=== PATIENT | female | born 1995 | race Caucasian/White ===

== ENCOUNTER 2016-11-22 07:20 | Day surgery (SDC) | payer OTHER ==
[2016-11-22] VITALS (13 sets, daily range): BP systolic 97–136; BP diastolic 50–87; PULSE 76–98; RESP 16–20; Ht 177.8 cm; Wt 114.0 kg
[~2016-11-22] VITALS: Ht 177.8 cm; Wt 114.0 kg
[~2016-11-22 07:20] MED LIST: CEFAZOLIN 2 GM/50 ML (PMX) 50 ML IVPB SCH
--- NOTE | 2016-11-22 08:59 | HPN ---
Date/Time of Note Date/Time of Note DATE: 11/22/16 TIME: 08:59 Interval H&P Admission Note Pt. seen H&P reviewed: No system changes CHRISTIANO ENG DPM Nov 22, 2016 08:59
[2016-11-22] MEDS ORDERED: BUPIVACAINE 0.5% (SDV) 30 ML INJ ONE (09:03)
[2016-11-22] MEDS ORDERED: POLYMYXIN/BACITRACIN 1L IRRIG ONE (09:03)
[2016-11-22] MEDS ORDERED: MIDAZOLAM 1 MG/ML 2 ML INJ ONE ×2 (09:12→09:21)
[2016-11-22] MEDS ORDERED: FENTAnyl 50 MCG/ML VIAL ONE (09:13)
[2016-11-22] MEDS ORDERED: ONDANSETRON 4 MG INJ ONE (09:25)
[2016-11-22] MEDS ORDERED: PROPOFOL 20 ML ONE ×2 (09:25)
[2016-11-22] MEDS ORDERED: DEXAMETHASONE 4 MG/ML 1 ML INJ ONE (09:25)
[2016-11-22] MEDS ORDERED: LIDOCAINE 2% (SDV) 5 ML INJ ONE (09:25)
[2016-11-22] MEDS ORDERED: METOCLOPRAMIDE 10 MG INJ ONE (09:25)
[2016-11-22] MEDS ORDERED: ACETAMINOPHEN 1000MG/100ML IV 0 ML ONE (09:28)
[2016-11-22] MEDS ORDERED: CEFAZOLIN 1 GM INJ ONE (09:30)
[2016-11-22] MEDS ORDERED: PHENYLephrine (100 MCG/ML) 5ML SYG ONE (09:50)
[2016-11-22] MEDS ORDERED: LIDOCAINE 2% (MDV) 20 ML INJ INJ ONE (09:51)
[2016-11-22] MEDS ORDERED: DIPHENHYDRAMINE 50 MG INJ IV PRN (10:00)
[2016-11-22] MEDS ORDERED: HYDROmorphONE (0.2 MG/ML) 10ML SYG IV PRN ×2 (10:00)
[2016-11-22] MEDS ORDERED: MEPERIDINE 25 MG INJ IV PRN (10:00)
[2016-11-22] MEDS ORDERED: FENTAnyl 50 MCG/ML VIAL IV PRN ×3 (10:00)
[2016-11-22] MEDS ORDERED: PROCHLORPERAZINE 10 MG INJ IV PRN (10:00)
[2016-11-22] MEDS ORDERED: HYDROmorphONE 2 MG/ML SYG ONE (10:00)
[2016-11-22] MEDS ORDERED: ONDANSETRON 4 MG INJ IV PRN (10:00)
[2016-11-22] MEDS ORDERED: OXYCODONE/ACETAMINOPHEN (5/325) TAB PO PRN ×2 (10:00)
--- NOTE | 2016-11-22 10:34 | OPPN ---
Date/Time of Note Date/Time of Note DATE: 11/22/16 TIME: 10:33 Operative/Procedure Note Pre-Operative Diagnosis Right foot painful bunion deformity Painful right ankle exostosis Post-Operative Diagnosis Right foot painful bunion deformity Painful right ankle exostosis Procedure Right foot bunionectomy Exostectomy right ankle Surgeon: CHRISTIANO ENG DPM Implants/Grafts [employer] cannulated screw 3.5mm headed. Estimated blood loss: minimal Drains: Not applicable Specimens Bone right foot Bone right ankle Complications: None Anesthesia type: general CHRISTIANO ENG DPM Nov 22, 2016 10:34
[2016-11-22] MEDS: HYDROmorphONE (0.2 MG/ML) 10ML SYG IV PRN ×2 (11:09→11:21)
[2016-11-22] MEDS ORDERED: HYDROCODONE/APAP (10/325) TAB PO PRN (15:00)
--- NOTE | 2016-11-23 14:14 | RADRPT ---
PROCEDURE: XR Foot 3 Views. CLINICAL INDICATION: Status post right hallux valgus surgery. Foot pain. TECHNIQUE: AP, oblique and lateral views of the right foot were obtained. The images were reviewe d on a PACS workstation. COMPARISON: None. FINDINGS: Surgical changes of distal first metatarsal bunionectomy and osteotomy are identified. Fixation scr ew is identified across the osteotomy site. Osteotomy fragments are in near anatomic alignment. The remaining osseous structures are intact. No destructive bony lesions are identified. Interosseous spaces are grossly unremarkable. Dressing material is identified between the first and second toes . IMPRESSION: Surgical changes of first metatarsal bunionectomy and osteotomy. The osteotomy fragments appear in near anatomic alignment. RPTAT: AA .Dhiraj Solis MD, Date Time Electronically viewed and signed by .Dhiraj Solis MD, on 11/23/2016 14:13 .P/
== END 2016-11-22 12:40 | disposition home or self-care (01) ==
LOC: SDS 07:20
PROVIDERS: ATTEND Podiatrist Foot & Ankle Surgery
DX: M20.11 Hallux valgus (acquired), right foot (principal); D16.31 Benign neoplasm of short bones of right lower limb; E66.9 Obesity, unspecified; Z68.36 Body mass index [BMI] 36.0-36.9, adult
CPT/HCPCS: 27635; 28292; 73630; 84703; 88304; 88311; J0690; J1100; J1170; J2250; J2370; J2405; J2765; J3010; Z7512; Z7610; J0131

== ENCOUNTER 2017-09-07 06:07 | Day surgery (SDC) | payer OTHER ==
[2017-09-06 12:51] VITALS: BMI 31.6
[2017-09-07] VITALS (15 sets, daily range): BP systolic 88–126; BP diastolic 47–79; PULSE 50–87; RESP 15–22; Ht 177.8 cm; Wt 101.2 kg
[~2017-09-07] VITALS: Ht 177.8 cm; Wt 101.2 kg
[2017-09-07] MEDS ORDERED: BUPIVACAINE 0.5% (SDV) 30 ML INJ ONE (07:08)
[2017-09-07] MEDS ORDERED: POLYMYXIN/BACITRACIN 1L IRRIG IRR ONE (07:17)
[2017-09-07] MEDS ORDERED: BUPIVACAINE 0.5% 30 ML VIAL INJ ONE (07:17)
--- NOTE | 2017-09-07 07:40 | HPN ---
Date/Time of Note Date/Time of Note DATE: 09/07/17 TIME: 07:40 Interval H&P Admission Note Pt. seen H&P reviewed: No system changes CHRISTIANO ENG DPM Sep 07, 2017 07:40
[2017-09-07] MEDS ORDERED: PROPOFOL 100 ML ONE (07:41)
[2017-09-07] MEDS ORDERED: ROCURONIUM 50 MG INJ ONE (07:43)
[2017-09-07] MEDS ORDERED: DEXAMETHASONE 4 MG/ML 1 ML INJ ONE (08:51)
[2017-09-07] MEDS ORDERED: ONDANSETRON 4 MG INJ ONE (08:52)
[2017-09-07] MEDS ORDERED: GLYCOPYRROLATE 0.4 MG INJ ONE (08:54)
[2017-09-07] MEDS ORDERED: NEOSTIGMINE 3 MG/3 ML SYRINGE ONE (08:54)
--- NOTE | 2017-09-07 09:02 | OPR ---
Date/Time of Note Date/Time of Note DATE: 09/07/17 TIME: 09:02 Operative Report Procedure Date: Sep 07, 2017 Preoperative Diagnosis Left foot painful bunion Left foot pain Postoperative Diagnosis Left foot painful bunion Left foot pain Operation/Procedure Performed Surgical correction of painful left foot bunion deformity with internal fixation Surgeon see signature line [employer] Window Clerk None Anesthesia Type: general Estimated Blood Loss: minimal Transfusion none Specimen Bone and soft tissue from the left foot Grafts/Implants 18 mm 3.0 headed partially threaded screw from [employer] Tubes/Drains None Complications none Pt Condition Post Procedure: stable Disposition: PACU Indications This is a pleasant 21-year-old female patient who has been suffering with left foot pain for many years. Patient was evaluated and was found to have severe left foot bunion deformity. Patient has failed the following treatments: Activity modification, shoe gear modification, NSAIDs, prescription pain medication, injection etc. Patient seeks surgical management. Recommended procedure: Left foot bunionectomy with internal fixation. Risks and complications of this type of surgery was discussed with patient in great detail. Risks and complications discussed included, but are not limited to, postoperative infection, postoperative pain, hardware failure, malunion, nonunion, delayed union, failure of surgery to correct the problem, need for additional surgical procedures, deep venous thrombosis, limb loss and loss of life. Patient understands the discussion and agrees to the procedure. An informed consent was signed, obtained and placed in the chart. No guarantees or warrantees was given or implied as to the outcome of the procedure either in verbal or written form. Procedure Description The patient was seen in the preoperative area. The proposed surgery was discussed with patient in great detail. Risks and complications of this type of surgery was discussed with patient in great detail. Opportunity was given to patient to ask questions and all questions were answered. The patient acknowledges understanding of the discussion. An informed consent was then obtained, signed and placed in the chart. Patient was taken to the operating room and was placed on the operating table in the supine position. All bony prominences were padded properly. A timeout was called by the circulating nurse. Everyone in the operating room was agreeable to the timeout. The patient was then placed under general anesthesia by the anesthesiologist. An ankle tourniquet was applied. The left foot was then scrubbed, prepped and draped in the usual aseptic manner. An Esmarch bandage was utilized to exsanguinate the left foot and the tourniquet was inflated to 250 mmHg pressure. Attention was directed to the left foot. A 6 cm linear incision was made over the dorsal medial aspect of the first metatarsophalangeal joint of the left foot using a #10 blade. Incision was placed medial to the extensor hallucis longus tendon. Dissection was deepened with care being taken to identify vital neurovascular structures. Bleeders were cauterized as necessary. The joint capsule was identified and a linear capsulotomy was performed. The joint capsule was dissected off of the head of the first metatarsal base of the proximal phalanx exposing the first metatarsophalangeal joint. A large dorsal and medial bony prominence was noted at the head of the first metatarsal bone. A power saw was used to cut the large medial bony prominence. Next, a Chevron type osteotomy was made at the head of the first metatarsal and the capital fragment was translated laterally. Range of motion was checked and was excellent. A guidewire for 3.0 headed [employer] screw was utilized. An 18 mm 3.0 cannulated screw was inserted using lag technique. The guidewire was removed. A power saw was used to cut the remaining medial shelf of bone. Next , the rough edges were then smoothed using a power bur. The wound was flushed with copious amounts of sterile normal saline. The joint capsule was reapproximated using 3-0 Vicryl suture. The subcutaneous layer was closed using 4-0 Vicryl and the skin was closed using 5-0 Monocryl in subcuticular stitch pattern. Steri-Strips were applied. Postoperative injection of 0.5% Marcaine plain was given; 10 cc. Sterile dressing was applied. The pneumatic ankle tourniquet was deflated at this time and prompt hyperemic response was noted to digits of the left foot. The patient tolerated procedure and anesthesia well. She was transferred to the recovery room with vital signs stable and vascular status intact to left lower extremity. The patient will be discharged home after postoperative monitoring. Postoperative orders were written. Patient will be followed up in the office discharged home in 1 week. CHRISTIANO ENG DPM Sep 07, 2017 09:02
--- NOTE | 2017-09-07 09:02 | SIPON ---
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
[2017-09-07] MEDS: FENTAnyl 50 MCG/ML VIAL IV PRN ×2 (09:25→09:48)
[2017-09-07] MEDS ORDERED: hydrALAzine 20 MG INJ IV PRN (09:30)
[2017-09-07] MEDS ORDERED: LABETALOL HCL 20MG INJ IV PRN (09:30)
[2017-09-07] MEDS ORDERED: DIPHENHYDRAMINE 50 MG INJ IV PRN (09:30)
[2017-09-07] MEDS ORDERED: MEPERIDINE 25 MG INJ IV PRN (09:30)
[2017-09-07] MEDS ORDERED: KETOROLAC 30 MG INJ IV PRN (09:30)
[2017-09-07] MEDS ORDERED: OXYCODONE/ACETAMINOPHEN (5/325) TAB PO PRN ×2 (09:30)
[2017-09-07] MEDS ORDERED: MIDAZOLAM 1 MG/ML 2 ML INJ IV PRN (09:30)
[2017-09-07] MEDS ORDERED: ONDANSETRON 4 MG INJ IV PRN (09:30)
[2017-09-07] MEDS ORDERED: FENTAnyl 50 MCG/ML VIAL IV PRN ×2 (09:30)
[2017-09-07] MEDS ORDERED: METOCLOPRAMIDE 10 MG INJ IV PRN (09:30)
[2017-09-07] MEDS ORDERED: HYDROmorphONE (0.2 MG/ML) 10ML SYG IV PRN ×3 (09:30)
[2017-09-07] MEDS ORDERED: EPHEDrine SULFATE 50 MG/5 ML SYG IV PRN (09:30)
--- NOTE | 2017-09-07 16:27 | RADRPT ---
PROCEDURE: XR Foot. CLINICAL INDICATION: Postop. TECHNIQUE: Left foot x-rays, three views. COMPARISON: Right foot x-rays 11/22/2016. FINDINGS: Bones: Bone density appears normal. Surgical changes compatible with bunionectomy and first metatars al osteotomy are present. A single small surgical screws in place. Alignment is well maintained. Bon y cortices are otherwise smooth and contiguous. Joint(s): Intact. There are no substantial degenerative changes. Soft tissues: Postoperative edema of the forefoot is observed. IMPRESSION: Surgical changes compatible with bunionectomy and first metatarsal osteotomy. RPTAT: [id number] .Edna Silva MD, MD Date Time Electronically viewed and signed by .Edna Silva MD, MD on 09/07/2017 16:27 .T/
== END 2017-09-07 11:00 | disposition home or self-care (01) ==
LOC: SDS 06:07
PROVIDERS: ATTEND Podiatrist Foot & Ankle Surgery
DX: M21.612 Bunion of left foot (principal)
CPT/HCPCS: 28296; 73630; J1100; J2405; J2710; J3010; Z7512; Z7610; 88304; 88311